=== PATIENT | female | born 1990 | race Caucasian/White ===

== ENCOUNTER → 2016-07-28 | Outpatient (CLI) | payer BC, MEDICAID ==
[~2016-07-28] MED LIST: ADULT TUSS100 MG/5 M; ALBUTEROL2.5 MG/0.5; BACTROBAN N1 GM/TUBE; CHILDREN S; CLARITIN10 MG PO; FLOVENT DISKUS50 MCG; HEARTBURN RELIE75 MG; LEVOTHROID (SY50 MCG; LEVOTHROID (SY50 MCG PO; LEXAPRO20 MG PO; LIORESAL10 MG PO; MILK OF MA400 MG/5 M PO; NORCO 5-325 TA1 EACH PO; OMEPRAZOLE20 M1; PULMICORT1 MG/2 ML INH; ROBINUL FORTE2 MG; SINGULAIR10 MG PO; VALIUM10 MG PO; ZINC OXIDE TOP; [UNRECOGNIZED DRUG - OTHER]
== END | disposition disaster alternative care site (69) ==
LOC: GRAD 10:43
DX: R10.33 Periumbilical pain (principal); R19.00 Intra-abdominal and pelvic swelling, mass and lump, unspecified site
CPT/HCPCS: Q9967